=== PATIENT | female | born 1960 | race Caucasian/White ===

== ENCOUNTER → 2016-09-08 | Outpatient (CLI) | payer OTHER ==
[~2016-09-08] MED LIST: EPP3/2 IM; FLUT0.15 NAE; HYOS1TAB PO; MULTTAB58 PO; SALI0.657 NAE
--- NOTE | 2016-09-08 08:09 | DIAGNOSTIC IMAGING REPORT ---
THYROID ULTRASOUND HISTORY: THYROID NODULE COMPARISON: Neck CT 10/04/2015. FINDINGS: Right lobe: 5.7 x 1.7 x 1.4 cm. There is a 9 x 6 x 5 mm hypoechoic upper pole nodule. There is an 8 x 5 x 6 mm solid and cystic nodule within the lower pole. Left lobe: 5.0 x 1.4 x 1.4 cm. There is a primarily cystic nodule within the upper pole measuring 10 x 9 x 5 mm. There is a solid slightly hyperechoic 7 x 6 mm nodule within the lower pole. There is also a solid isoechoic 6 x 5 mm nodule within the upper pole. Isthmus: 2 mm in thickness. No nodules. IMPRESSION: A few scattered nodules within the thyroid gland with the largest measuring 1 cm as described above. These do not meet sonographic criteria for biopsy. Electronically signed by: Rogerio Meeks M.D. 09/08/2016 8:07 AM Dictated Date/Time: 09/08/2016 8:05 AM
== END | disposition home or self-care (01) ==
LOC: C.ULTR 07:22
PROVIDERS: ATTEND Family Medicine
DX: E04.1 Nontoxic single thyroid nodule (principal)

== ENCOUNTER → 2017-03-05 | Outpatient (CLI) | payer OTHER ==
--- NOTE | 2017-03-05 13:25 | MAMMOGRAPHY REPORT ---
BILATERAL DIGITAL SCREENING MAMMOGRAM TOMOSYNTHESIS WITH CAD: 03/05/2017 CLINICAL HISTORY: Routine screening. Patient has no complaints. TECHNIQUE: Breast tomosynthesis in addition to standard 2D mammography was performed. Current study was also evaluated with a Computer Aided Detection (CAD) system. COMPARISON: Comparison is made to exams dated: 01/09/2016 mammogram, 11/22/2014 mammogram, 09/12/2013 m ammogram, 09/08/2012 mammogram, 09/10/2010 mammogram, and 04/08/2009 mammogram - [facility] er. BREAST COMPOSITION: The tissue of both breasts is heterogeneously dense, which may obscure small mas ses. FINDINGS: No suspicious masses, calcifications, or areas of architectural distortion are noted in ei ther breast. There has been no significant interval change compared to prior exams. IMPRESSION: ACR BI-RADS CATEGORY 1: NEGATIVE There is no mammographic evidence of malignancy. A 1 year screening mammogram is recommended. The pa tient will receive written notification of the results. Approximately 10% of breast cancers are not detected with mammography. A negative mammographic report should not delay biopsy if a clinically suggestive mass is present. Nicki Mcfadden M.D. ah/:03/05/2017 07:37:33 Electromechanical Equipment Tester: Gretchen PEACE(R)(M), [facility] letter sent: Normal 1/2 BI-RADS Code: ACR BI-RADS Category 1: Negative
== END | disposition home or self-care (01) ==
LOC: C.MAMM 07:04
PROVIDERS: ATTEND Obstetrics & Gynecology
DX: Z12.31 Encounter for screening mammogram for malignant neoplasm of breast (principal)